=== PATIENT | male | born 1975 | race Caucasian/White ===

== ENCOUNTER 2016-11-11 09:29 | Emergency (ER) | payer OTHER | END 2016-11-11 13:55 | disposition home or self-care (01) | LOC: ER 09:29 | DX: K27.9 Peptic ulcer, site unspecified, unspecified as acute or chronic, without hemorrhage or perforation (principal); I10 Essential (primary) hypertension; F17.200 Nicotine dependence, unspecified, uncomplicated; Z90.49 Acquired absence of other specified parts of digestive tract | CPT/HCPCS: 36415; 80307; 96361; 96374; 96375; 96376; G0480; J2550; Q9967 ==